=== PATIENT | female | born 1960 | race Caucasian/White ===

== ENCOUNTER 2018-01-05 09:49 | Emergency (ER) | payer BC ==
[~2018-01-05] VITALS: Ht 157.5 cm; Wt 120.0 kg
[2018-01-05] MEDS ORDERED: MORPHINE SULFATE 4 MG/ML CPJ (NOT FOR IM USE) IV STA (10:35)
[2018-01-05 11:16] LABS: EOSINOPHILS % 2.1 % (0.0-5.0); HEMATOCRIT. 34.5 % (36.0-48.0); HEMOGLOBIN. 11.6 g/dL (12.0-16.0); LYMPHOCYTES % 40.9 % (20.0-50.0); MEAN CORPUSCULAR HEMOGLOBIN 29.5 pg (28.0-32.0); MEAN CORPUSCULAR VOLUME 87.6 fL (81.0-99.0); MEAN PLATELET VOLUME 7.8 fl (7.4-10.4); MONOCYTES % 8.8 % (2.0-8.0); NEUTROPHILS % 47.2 % (40.0-76.0); PLATELET 212 x1000/uL (130-400); RED BLOOD CELL COUNT 3.94 mill/uL (4.2-5.4)
[2018-01-05 11:23] LABS: CHLORIDE 107 mEq/L (98-107)
[2018-01-05] MEDS ORDERED: KETOROLAC 15MG/ML VIAL IV ONE (11:30)
[2018-01-05] MEDS ORDERED: AMLODIPINE 5MG TABLET PO ONE (12:15)
[2018-01-05 15:13] VITALS: BP 172/88
== END 2018-01-05 15:15 | disposition home or self-care (01) ==
LOC: ER 11:10 → CANBEDREQ 15:53
DX: R07.89 Other chest pain (principal)
CPT/HCPCS: 36415; 71045; 80053; 83880; 84484; 85025; 93005; 96374; 99285; J1885; Z7610